=== PATIENT | female | born 1950 | race Two or more races ===

== ENCOUNTER 2022-09-16 08:52 | Outpatient (CLI) | payer OTHER | END 2022-09-16 09:01 | disposition home or self-care (01) | LOC: NUCLEAR 08:52 | PROVIDERS: ATTEND Internal Medicine | DX: I65.23 Occlusion and stenosis of bilateral carotid arteries (principal); E78.2 Mixed hyperlipidemia ==

== ENCOUNTER 2024-08-08 11:07 | Outpatient (CLI) | payer OTHER | END 2024-08-08 11:08 | disposition home or self-care (01) | LOC: NUCLEAR 11:07 | PROVIDERS: ATTEND Internal Medicine | DX: I65.29 Occlusion and stenosis of unspecified carotid artery (principal) ==